=== PATIENT | female | born 1935 | race Caucasian/White ===

== ENCOUNTER 2018-08-22 16:23 | Emergency (ER) | payer OTHER ==
[2018-08-22 16:42] VITALS: BP 138/101; PULSE 102; TEMP 98.2; BMI 34.9
--- NOTE | 2018-08-22 16:43 | PDOC ---
Rapid Medical Evaluation Time Seen by Provider: 08/22/18 16:38 Medical Evaluation: Allergies Allergy/AdvReac Type Severity Reaction Status Date / Time No Known Allergies Allergy Verified 07/04/18 15:58 08/22/18 16:39 The patient complains of: fell and hit the back of her head, no loc, unsure if dizzy prior to the fall, no headache presently, but states intermittent blurriness to right since fall thia am, no anticoagulation tx, has pacemaker, followed by Dr. lewis On brief exam: 138/101, A0 x 3, no hematoma palpated The patient ordered for: cardiac w/u, head ct The patient to proceed to the ED Discharge Disposition - Diagnosis Head injury - Referrals - Patient Instructions - Post Discharge Activity
--- NOTE | 2018-08-22 17:06 | PDOC ---
History of Present Illness - General Chief Complaint: Injury Stated Complaint: FALL/INJURY Time Seen by Provider: 08/22/18 16:38 - History of Present Illness Initial Comments: 08/22/18 17:04 83 yo F with h/o HTN, HLD, NIDDM, CAD, Pacemaker, BIBA s/p fall with closed head injury. Patient reports waking up this morning at approximately 0615 and sitting on the side of her bed for minutes. She then reports standing u with cane and attempting to walk to the bedside table to grab her cell phone, when she lost her balance and fell backwards landing on her sacrum and hitting the back of her head on the table. Denies bleeding, LOC, convulsions. Patient sat on the floor until her arrived and called EMS. On ground 30 minutes. Patient wad evaluated by EMS this AM, but refused to come to ED. Now patient presents following referral by PMD, with complaint of right sided blurry vision , and dull posterior headache. Patient able to ambulate following fall and head injury, without difficulty. On ASA 81 mg QD. Otherwise denies AC. Patient f/w optho, and wear prescriptive lenses. Patient denies N/V, F/C, palpitations, PND, orthopnea, CP, cough, wheezing, leg pain/swelling, SOB, urinary complaints, perianal parasthesia, abdominal pain, diarrhea, constipation, lightheadedness, weakness, sensory changes. PMHx: as noted above ROS: as noted SHx: Denies Etoh, IVDA, tobacco use. Allergies: NKDA Past History - Past Medical History Allergies/Adverse Reactions: Allergies Allergy/AdvReac Type Severity Reaction Status Date / Time No Known Allergies Allergy Verified 08/22/18 16:42 Home Medications: Ambulatory Orders Atenolol [Tenormin] 50 mg PO DAILY 07/23/16 Atorvastatin Ca [Lipitor] 10 mg PO HS 07/23/16 Fenofibric Acid [Trilipix -] 135 mg PO DAILY 07/23/16 Olmesartan Medoxomil [Benicar -] 20 mg PO DAILY 07/23/16 Omeprazole [Prilosec] 20 mg PO DAILY 07/23/16 metFORMIN HCL [Metformin HCl] 500 mg PO BID 07/23/16 Aspirin Coated [Ecotrin -] 81 mg PO DAILY tablet.ec 07/26/16 Cardiac Disorders: Yes (Pacemaker) COPD: No Diabetes: Yes HTN: Yes - Surgical History Cardiac Surgery: Yes (PACEMAKER) Orthopedic Surgery: (B/L knee replacements, L Wrist fx surg) - Immunization History Immunization Up to Date: Yes - Suicide/Smoking/Psychosocial Hx Smoking History: Never smoked Have you smoked in the past 12 months: No If you are a former smoker, when did you quit?: 50 YRS AGO Information on smoking cessation initiated: No Hx Alcohol Use: No Drug/Substance Use Hx: No Substance Use Type: None Review of Systems - Review of Systems Comments:: 08/22/18 17:05 GENERAL/CONSTITUTIONAL: No fever or chills. No weakness. HEAD, EYES, EARS, NOSE AND THROAT: + change in vision. No ear pain or discharge. No sore throat. CARDIOVASCULAR: No chest pain or shortness of breath RESPIRATORY: No cough, wheezing, or hemoptysis. GASTROINTESTINAL: No nausea, vomiting, diarrhea or constipation. GENITOURINARY: No dysuria, frequency, or change in urination. MUSCULOSKELETAL:+ Lumbar back Pain. No joint or muscle swelling or pain. No neck pain. SKIN: No rash NEUROLOGIC: No headache, vertigo, loss of consciousness, or change in strength/ sensation. ENDOCRINE: No increased thirst. No abnormal weight change HEMATOLOGIC/LYMPHATIC: No anemia, easy bleeding, or history of blood clots. ALLERGIC/IMMUNOLOGIC: No hives or skin allergy. *Physical Exam - Vital Signs Last Vital Signs Temp Pulse Resp BP Pulse Ox 98.2 F 102 H 16 138/101 H 100 08/22/18 16:40 08/22/18 16:40 08/22/18 16:40 08/22/18 16:40 08/22/18 16:40 - Physical Exam Comments: 08/22/18 17:05 GENERAL: Awake, alert, and fully oriented, in no acute distress HEAD: No signs of trauma, normocephalic, atraumatic EYES: OU 20/40, PERRLA, EOMI, sclera anicteric, conjunctiva clear ENT: Auricles normal inspection, hearing grossly normal, nares patent, oropharynx clear without exudates. Moist mucosa NECK: Normal ROM, supple, no lymphadenopathy, JVD, or masses LUNGS: No distress, speaks full sentences, clear to auscultation bilaterally HEART: Regular rate and rhythm, normal S1 and S2, no murmurs, rubs or gallops, peripheral pulses normal and equal bilaterally. ABDOMEN: Soft, nontender, normoactive bowel sounds. No guarding, no rebound. No masses EXTREMITIES : Normal inspection, Normal range of motion, no edema. No clubbing or cyanosis. NEUROLOGICAL: Cranial nerves II through XII grossly intact. Normal speech, normal gait with walker, no focal sensorimotor deficits. Normal COREEN, and HTS. Absent dsymetria on FTN. BACK: + Lumbar and sacral paraspinal ttp. Absent midline ttp, bony deformity, or stepoff. SKIN: Warm, Dry, normal turgor, no rashes or lesions noted ED Treatment Course - LABORATORY CBC & Chemistry Diagram: 08/22/18 17:10 08/22/18 17:10 Medical Decision Making - Medical Decision Making 08/22/18 18:11 83 yo F with h/o HTN, HLD, NIDDM, BL cataracts, CAD, Pacemaker, BIBA s/p fall with closed head injury. BP 138/101, HR 102, AF, vitals otherwise wnl. No neruologic deficits on physical exam. + Lumbar sacral paraspinal ttp, with absent midline ttp. CTH r/o hemorrhage, hematoma, skull fracture. Nexus criteria negative C-SPINE injury. No evidence of basilar skull fracture. LUMBAR SACRAL RAD R/O fracture/subluxation. No evidence of cuada equina. 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 ED Course: 08/22/18 18:18 CBC,CMP: Unremarkable Trop: Neg 08/22/18 20:05 CTH: No acute pathology 08/22/18 20:32 LUMBAR RAD: No acute change. Patient ambulating without difficulty. Stable for d/c with return precautions. *DC/Admit/Observation/Transfer Diagnosis at time of Disposition: Head injury Qualifiers: Encounter type: initial encounter Qualified Code(s): S09.90XA - Unspecified injury of head, initial encounter - Discharge Dispostion Condition at time of disposition: Stable Decision to Admit order: No - Referrals - Patient Instructions Printed Discharge Instructions: DI for Closed Head Injury Additional Instructions: Please return to the emergency department with any new or worsening symptoms or concerns. Please follow up with your primary care physician within 72 hours. - Post Discharge Activity - Attestations Physician Attestion: 08/22/18 17:06 I attest to the information provided in this note.
--- NOTE | 2018-08-22 17:17 | PDOC ---
Attending Attestation - [facility] HPI: 08/22/18 18:16 The patient is a 83 year old female brought via EMS, with a significant past medical history of HTN, HLD, NIDDM, CAD s/p pacemaker (last interrogated 05/2018) , who presents to the ED after a fall today. She notes that she felt dizzy when she got up from her bed and landed on her button and hit her head against the table. She decided not to come to the ED but throughout the day she developed a throbbing headache, mild in nature. She denies any loss of consciousness. She notes that she has been using the stairs all day while doing laundry. She does report mild blurry vision from her right eye even with her glasses on. The patient denies chest pain, shortness of breath, fever, chills, nausea, vomiting, diarrhea or constipation. Denies dysuria, frequency, urgency and hematuria. Allergies: None Past surgical history: B/L knee replacements, L Wrist fx surg, pacemaker Social History: No alcohol, tobacco or drug use reported - Physicial Exam PE: 08/22/18 18:16 Constitutional: Awake, alert, oriented. No acute distress. Head: Normocephalic. Atraumatic Eyes: PERRL. EOMI. Conjunctivae are not pale. ENT: Mucous membranes are moist and intact. Posterior pharynx without exudates or erythema. Uvula midline. Neck: Supple. Full ROM. No lymphadenopathy. Cardiovascular: (+) Pacemaker. Regular rate. S1, S2 regular. Distal pulses are 2+ and symmetric. Pulmonary/Chest: (+) Left chest pacer. No evidence of respiratory distress. Clear to auscultation bilaterally No wheezing, rales or rhonchi. Abdominal: (+) Obese. Soft and non-distended. There is no tenderness. No rebound, guarding or rigidity. No organomegaly. No palpable masses. Good bowel sounds. Back: (+) Paraspinal tenderness to palpation. No CVA tenderness. Musculoskeletal: No edema. No cyanosis. No clubbing. Full range of motion in all extremities. Nocalf tenderness. Radial/pedal pulses are intact and 2+ bilaterally Skin: (+) Well healed surgical scars on knees bilaterally. Skin is warm and dry. No petechiae. No purpura. Neurological: Alert and oriented to person, place, and time. Cranial nerves II -XII are grossly intact. Normal speech. Strength is grossly symmetric. No sensory deficits. Psychiatric: Good eye contact. Normal interaction, affect and behavior. <Campos Nagy - Last Filed: 08/22/18 18:16> - Resident Resident Name: Zack Flores - ED Attending Attestation I have performed the following: I have examined & evaluated the patient, The case was reviewed & discussed with the resident, I agree w/resident's findings & plan, Exceptions are as noted - Medical Decision Making 08/22/18 17:17 I, Dr. Sary Maurice, DO, attest that this document has been prepared under my direction and personally reviewed by me in its entirety. I further attest, that it accurately reflects all work, treatment, procedures and medical decision -making performed by me. 08/22/18 18:20 a/p: 83yo female with mechanical fall earlier today around 615a -medics had to help her get up -pt refused to come to the ED this AM -as the day progressed she was able to go up and down stairs, but developed R eye blurred vision and a posterior negron -will give tylenol -no blood thinners -neuro intact -walks with a walker -low back ttp, no midline ttp, no step offs or deformities -has been ambulatory with her cane in the ED -labs from [facility] reviewed and pending [facility] -no cva tpp -no c spine ttp -no paresthesias -will obtain head ct - though low suspicion for intracranial bleeding -will xray low back 08/22/18 20:[address] negative degenerative changes in L spine pt has been ambulatory pt visual acuity performed by resident- does have cataracts stable for d/c to home ua negative <Sary Maurice - Last Filed: 08/22/18 20:32>
[2018-08-22 17:24] LABS: BASO % 0.7 % (0-2.0); EOS % 0.7 % (0-4.5); HEMATOCRIT 38.2 % (32.4-45.2); HEMOGLOBIN 12.3 GM/dL (10.7-15.3); LYMPH % 23.3 % (8-40); MCH 28.8 pg (25.7-33.7); MCHC 32.3 g/dl (32.0-36.0); MEAN PLT VOLUME 8.8 fl (7.5-11.1); MONO % 8.3 % (3.8-10.2); PLATELET COUNT 291 K/MM3 (134-434); RBC 4.29 M/mm3 (3.60-5.2); WHITE BLOOD COUNT 7.9 K/mm3 (4.0-10.0)
[2018-08-22 17:51] LABS: ALBUMIN 3.6 g/dl (3.4-5.0); ALK PHOS 56 U/L (45-117); ANION GAP 5 MMOL/L (8-16); BILIRUBIN,TOTAL 0.2 mg/dL (0.2-1); BLOOD UREA NITROGEN 24 mg/dL (7-18); CALCIUM 9.2 mg/dL (8.5-10.1); CHLORIDE 111 mmol/L (98-107); CO2 27 mmol/L (21-32); CREATININE 0.6 mg/dL (0.55-1.3); GLUCOSE,RANDOM 175 mg/dL (74-106); MAGNESIUM 1.7 mg/dL (1.8-2.4); POTASSIUM 4.3 mmol/L (3.5-5.1); SGOT/AST 17 U/L (15-37); SGPT/ALT 30 U/L (13-61); SODIUM 143 mmol/L (136-145)
[2018-08-22] MEDS ORDERED: ACETAMINOPHEN 325 MG TABLET (FP) PO ONE (18:34)
[2018-08-22] MEDS ORDERED: ACETAMINOPHEN 325 MG TABLET (FP) ONE (19:05)
[2018-08-22 20:14] LABS: URINE APPEARANCE CLOUDY; URINE BILIRUBIN NEGATIVE (<2.0 mg/dL); URINE COLOR AMBER; URINE GLUCOSE (UA) NEGATIVE (NEGATIVE); URINE KETONE NEGATIVE (NEGATIVE); URINE LEUK ESTERASE 3+ (NEGATIVE); URINE NITRITE NEGATIVE (NEGATIVE); URINE PROTEIN NEGATIVE (NEGATIVE); URINE UROBILINOGEN NEGATIVE mg/dL (0.2-1.0)
[2018-08-22 20:19] LABS: EPI CELLS RARE /HPF (FEW); URINE BACTERIA RARE /hpf (NONE SEEN); URINE HYALINE CAST 1 /lpf; URINE MUCUS RARE
--- NOTE | 2018-08-23 12:12 | EKG ---
Test Reason : Blood Pressure : / mmHG Vent. Rate : 080 BPM Atrial Rate : 080 BPM P-R Int : 000 ms QRS Dur : 150 ms QT Int : 424 ms P-R-T Axes : 000 002 035 degrees QTc Int : 489 ms Atrial-paced rhythm with prolonged AV conduction RIGHT BUNDLE BRANCH BLOCK ABNORMAL ECG WHEN COMPARED WITH ECG OF 04-JUL-2018 17:26, RIGHT BUNDLE BRANCH BLOCK IS NOW PRESENT Confirmed by GEOFF YAN, KATHARINE ([id number]) on 08/23/2018 12:11:26 PM Referred By: Confirmed By:KATHARINE TELLEZ MD
== END 2018-08-22 21:03 | disposition home or self-care (01) ==
LOC: JER 16:23
DX: S09.90XA Unspecified injury of head, initial encounter (principal); Z95.0 Presence of cardiac pacemaker; I10 Essential (primary) hypertension; E11.9 Type 2 diabetes mellitus without complications; Z87.891 Personal history of nicotine dependence; E78.5 Hyperlipidemia, unspecified; W18.39XA Other fall on same level, initial encounter; Y93.89 Activity, other specified; Y92.003 Bedroom of unspecified non-institutional (private) residence as the place of occurrence of the external cause
CPT/HCPCS: 36415; 70450-TC; 72100-TC-FY; 80053; 81003; 81015; 82550; 82553; 83735; 84484; 85025; 93005; 93010; 99283-25